=== PATIENT | male | born 1990 | race Caucasian/White ===

== ENCOUNTER 2018-10-07 23:33 | Emergency (ER) | payer OTHER ==
[2018-10-07 23:38] VITALS: BP 124/68; PULSE 91; RESP 16; TEMP 98.6
[2018-10-07] MEDS ORDERED: LIDOCAINE 1% INJ 10MG/ML (20 ML MDV) SQ ONE (23:55)
--- NOTE | 2018-10-08 00:29 | ED ---
Wound/Laceration HPI - General Chief Complaint: Wound/Laceration Stated Complaint: Cheek Laceration Time Seen by Provider: 10/07/18 23:50 Source: patient Mode of arrival: ambulatory Limitations: no limitations - History of Present Illness Initial Comments: 28-year-old male patient presents to the emergency department today for evaluation of laceration to the right side of his face. Patient states proximal one hour and a half ago was playing hockey when he collided with another player and the players mask cutting his face. Patient denies losing consciousness with the injury. States he did have a brief headache lasting approximately 20 minutes after the episode. He denies any current headache, blurred vision, double vision, nausea, or vomiting with this. Denies any numbness, tingling, weakness to the extremities, or dizziness. Denies any other injuries. States his last tetanus vaccine was within 4 years. Patient denies any neck pain, back pain, chest pain, shortness of breath, abdominal pain, nausea, vomiting, or difficulties with bowel movements or urination. - Related Data Allergies Allergy/AdvReac Type Severity Reaction Status Date / Time cat dander AdvReac Itching Verified 10/07/18 23:38 Review of Systems ROS Statement: Those systems with pertinent positive or pertinent negative responses have been documented in the HPI. ROS Other: All systems not noted in ROS Statement are negative. Past Medical History Past Medical History: No Reported History History of Any Multi-Drug Resistant Organisms: None Reported Past Surgical History: Adenoidectomy Past Psychological History: No Psychological Hx Reported Smoking Status: Current every day smoker Past Alcohol Use History: Occasional Past Drug Use History: Marijuana General Exam Limitations: no limitations General appearance: alert, in no apparent distress, other (This is a well- developed, well-nourished adult male patient in no acute distress. Vital signs upon presentation are temperature 98.6F, pulse 91, respirations 16, blood pressure 124/68, pulse ox 96% on room air.) Eye exam: Present: normal appearance, PERRL, EOMI. Absent: scleral icterus, conjunctival injection, nystagmus, periorbital swelling, periorbital tenderness ENT exam: Present: normal oropharynx, mucous membranes moist, other (Patient has 1.5 center laceration noted to the right maxillary region. This is a simple superficial laceration. There is no maxillary bony tenderness or step-off noted to palpation.). Absent: normal exam Neck exam: Present: normal inspection, full ROM, other (Nontender, no step-off, no deformity to firm midline palpation of the posterior cervical spine. Full range of motion without pain or limitation.). Absent: tenderness, meningismus, lymphadenopathy Respiratory exam: Present: normal lung sounds bilaterally. Absent: respiratory distress, wheezes, rales, rhonchi, stridor Cardiovascular Exam: Present: regular rate, normal rhythm, normal heart sounds. Absent: systolic murmur, diastolic murmur, rubs, gallop, clicks Neurological exam: Present: alert, oriented X3, CN II-XII intact Psychiatric exam: Present: normal affect, normal mood Skin exam: Present: warm, dry, intact, normal color. Absent: rash Course Vital Signs 10/07/18 23:34 Temperature 98.6 F Pulse Rate 91 Respiratory 16 Rate Blood Pressure 124/68 O2 Sat by Pulse 96 Oximetry Procedures - Laceration Laceration #1 Consent Obtained: verbal consent Indication: laceration Site: face Description: linear Depth: simple, single layer Anesthetic Used: lidocaine 1% Anesthesia Technique: local infiltration Amount (mls): 3 Pre-repair: irrigated extensively Type of Sutures: nylon Size of Sutures: 6-0 Number of Sutures: 3 Technique: simple, interrupted Patient Tolerated Procedure: well, no complications Additional Comments: 1.5 cm laceration Medical Decision Making - Medical Decision Making 28-year-old male patient presented to the emergency department today for evaluation of right facial laceration. Physical examination did reveal a 1.5 cm laceration to the right maxillary region. There is no bony step-off or tenderness noted upon palpation of the area. No periorbital tenderness. No eye or globe injury. Patient is neurologically intact with no focal deficits. We did repair laceration as documented. He did have tetanus vaccination within the last 4 years. He was educated regarding wound care and signs or symptoms of infection. He is instructed to have the sutures removed in 3-5 days. He is instructed to follow-up with his primary care physician for recheck in 1-2 days. Return parameters were discussed in detail. He verbalizes understanding and ag mercedes with this plan. Disposition Clinical Impression: Facial laceration Disposition: HOME SELF-CARE Condition: Good Instructions (If sedation given, give patient instructions): Care For Your Stitches (ED), Facial Laceration (ED) Additional Instructions: Gently cleanse twice daily with warm water and antibacterial soap. Return in 3- 5 days for removal of stitches. Follow-up through primary care physician for recheck in 1-2 days. Return to the emergency department immediately for any new, worsening, or concerning symptoms. Is patient prescribed a controlled substance at d/c from ED?: No Referrals: Master Loza DO [Primary Care Provider] - 1-2 days Time of Disposition: 00:28
== END 2018-10-08 00:38 | disposition home or self-care (01) ==
LOC: EC 23:33
DX: S01.411A Laceration without foreign body of right cheek and temporomandibular area, initial encounter (principal); F17.200 Nicotine dependence, unspecified, uncomplicated; Z91.048 Other nonmedicinal substance allergy status; W22.8XXA Striking against or struck by other objects, initial encounter; Y93.22 Activity, ice hockey
CPT/HCPCS: 99282; 12011; J2001

== ENCOUNTER → 2022-01-19 | Outpatient (CLI) | payer OTHER ==
--- NOTE | 2022-01-19 18:23 | EEG ---
ELECTROENCEPHALOGRAM REPORT DATE OF SERVICE: 01/19/2022 PREAMBLE: This is a 31-year-old male with a syncopal spell. EEG FINDINGS: This is a 21-channel digital EEG recorded with video component, utilizing 10/20 international system with referential and bipolar montages. Background consists of well developed, well regulated, moderate voltage activity in 10 hertz alpha. Background is posterior-dominant and reactive to eye opening and closing. Photic driving response was seen with some flash frequencies. Hyperventilation revealed no abnormalities. Drowsiness was seen with appearance of bilaterally symmetric theta frequency rhythm. Deeper stages of sleep were not seen. No focal or generalized epileptiform activity was seen. EKG channel showed no obvious arrhythmia. IMPRESSION: This is a normal awake and drowsy EEG. No focal, lateralized or epileptiform activity was seen. MMODL / IJN: [id number] /
== END ==
LOC: NEUROMAIN 07:43
PROVIDERS: ATTEND Family Medicine
DX: R55 Syncope and collapse (principal); F17.200 Nicotine dependence, unspecified, uncomplicated; Z91.09 Other allergy status, other than to drugs and biological substances
CPT/HCPCS: 95816